=== PATIENT | male | born 1955 | race Caucasian/White ===

== ENCOUNTER → 2019-04-13 | Day surgery (SDC) | payer MEDICARE, OTHER ==
[~2019-04-13] MED LIST: ACETAMINOPHEN 325 MG TABLET PO PRN; ALBUTEROL SULFATE 2.5 MG/3 ML NEBU. NEB PRN; AMLO1CAP PO; ASPI81TA50 PO; ATROPINE 0.5 MG/5 ML DISP.SYRIN. IV PRN; IV RINGERS SOLUTION,LACTATED 1,000 ML IV SCH; LIPITOR80 MG PO; METF500T16 PO; ONDANSETRON PF 4 MG/2 ML VIAL. IV PRN; PROPOFOL 60 ML IV ONE; diphenhydrAMINE 50 MG/ML VIAL IV PRN
[2019-04-13 13:10] VITALS: BP 143/94
--- NOTE | 2019-04-15 14:07 | PATHOLOGY ---
[facility] Accession Number: [id number] . 01 Material submitted: . PART A: colon - 1-TRANSVERSE POLYP. Modifiers: transverse PART B: colon - 2-ASCENDING POLYP. Modifiers: ascending PART C: cecum - 3-CECUM POLYP PART D: colon - 4-TRANSVERSE POLYP. Modifiers: transverse . 01 Clinical history: . History of polyps . 02 Diagnosis: A. Colon biopsy, transverse colon polyp: - Tubular adenoma. . B. Colon biopsy, ascending colon polyp: - Tubular adenoma. . C. Colon biopsy, cecal polyp: - Tubular adenoma. . D. Colon biopsy, transverse colon polyp: - Tubular adenoma. . (JPM:bogdan; 04/15/2019) [facility] 04/15/2019 0920 Local . 02 Comment: There is no high-grade dysplasia or evidence of malignancy. (JPM:bogdan; 04/15/2019) . 02 Electronically signed: . Domingo Sutherland MD, Pathologist NPI- [id number] . 01 Gross description: . A. The specimen is received in formalin, labeled "Andrea Baker", "transverse polyp". Received is a single polypoid segment of pale esparza soft tissue, measuring 0.3 cm. The specimen is entirely submitted in cassette A1. . B. The specimen is received in formalin, labeled "Andrea Baker", "ascending polyp". Received is a single polypoid segment of pale esparza soft tissue measuring 0.4 cm. The specimen is entirely submitted in cassette B1. . C. The specimen is received in formalin, labeled "Andrea Baker", "cecum polyp". Received is a single polypoid segment of pale esparza soft tissue measuring 0.2 cm. The specimen is entirely submitted in cassette C1. . D. The specimen is received in formalin, labeled "Andrea Baker", "transverse polyp (4)". Received is a single polypoid segment of pale esparza-dark esparza soft tissue measuring 0.6 cm. The specimen is entirely submitted in cassette D1.(SNA; 04/14/2019) MARIYA/MICHAEL 04/14/2019 1840 Local . 02 Pathologist provided ICD-10: D12.3, D12.2, D12.0 . 02 CPT . 269601, 540795, [id number], 482107 Specimen Comment: A courtesy copy of this report has been sent to [phone] Specimen Comment: Report sent to Specimen Comment: A duplicate report has been generated due to demographic updates. Performed at: 01 [facility] [address] [facility] [address], [place] [id number] MD Homero Hull MD Phone: [phone] Performed at: 02 [facility] [address] [place], [place] [id number] MD Domingo Sutherland MD Phone: [phone]
== END ==
LOC: SURG 09:36
PROVIDERS: ATTEND Internal Medicine Gastroenterology
DX: Z12.11 Encounter for screening for malignant neoplasm of colon (principal); D12.2 Benign neoplasm of ascending colon; D12.3 Benign neoplasm of transverse colon; D12.0 Benign neoplasm of cecum; K64.4 Residual hemorrhoidal skin tags; E66.9 Obesity, unspecified; Z68.39 Body mass index [BMI] 39.0-39.9, adult; Z79.82 Long term (current) use of aspirin; Z87.39 Personal history of other diseases of the musculoskeletal system and connective tissue; Z85.828 Personal history of other malignant neoplasm of skin; Z86.010 Personal history of colon polyps
CPT/HCPCS: 45380; 45385; 88305; J2704; J7120